=== PATIENT | female | born 1935 | race Caucasian/White ===

== ENCOUNTER 2019-04-05 16:30 | Inpatient (IN) | payer MEDICARE, OTHER ==
[~2019-04-05] VITALS: Ht 152.4 cm; Wt 61.7 kg
[2019-04-05] MEDS ORDERED: ELIQUIS5 MG PO (16:53)
[2019-04-05] MEDS ORDERED: LIPITOR10 MG PO (16:55)
[2019-04-05] MEDS ORDERED: BENEFIBER152 GM PO (16:57)
[2019-04-05] MEDS ORDERED: TUMS PO ×2 (16:58→16:59)
[2019-04-05] MEDS ORDERED: XALATAN2.5 ML OPHTHALMIC (17:02)
[2019-04-05] MEDS ORDERED: LEVOXYL75 MCG PO (17:05)
[2019-04-05] MEDS ORDERED: TOPROL XL100 MG PO (17:22)
[2019-04-05] MEDS ORDERED: MULTIVITAMINS PO (17:24)
[2019-04-05] MEDS ORDERED: OXYBUTYNIN 5 MG5 M2 PO (17:25)
[2019-04-05 17:30] VITALS: BP 145/82
[2019-04-05] MEDS ORDERED: RISPERDAL0.5 MG PO (17:35)
[2019-04-05] MEDS ORDERED: OMEGA-3 + VITA1 EACH PO (17:41)
--- NOTE | 2019-04-05 18:46 | NUR ---
83 YEAR OLD FEMALE PATIENT ADMITTED TO ROOM 328 WITH A DX OF ENCEPHALOPATHY. PT SETTLED INTO ROOM, EDUCATED ON USE OF THE CALL LIGHT AND FALL PRECAUTIONS. ADMISSION ORDERS RECEIVED. FALL PRECAUTIONS IMPLEMENTED.
[2019-04-05 20:10] VITALS: BP 125/74
--- NOTE | 2019-04-06 00:05 | NUR ---
PATIENT ARRIVED ON DAY SHIFT FROM [facility]. ALERT AND ORIENTED TO NAME AND TIME. HAS TO BE REORIENTED TO PLACE AND SITUATION. FORGETFUL. CONCERNED ABOUT NOT BEING ABLE TO KEEP UP WITH THE THERAPY. REASSURED PATIENT THAT ADJUSTMENTS COULD BE MADE IF NEEDED. DENIES PAIN. ASSISTED WITH ANSWERING QUESTIONS. REHAB ADMISSION TOOL COMPLETED. ORIENTED TO CALL LIGHT AND TO REHAB ROUTINE. CALL LIGHT WITHIN REACH. PROVIDED AN ENSURE SHAKE. STATES PATIENT HAS LOST 20 POUNDS IN THE LAST 4-6 WEEKS.
[2019-04-06 04:14] LABS: HEMATOCRIT 34.7 % (37.0-47.0); HEMOGLOBIN 11.6 gm/dL (12.0-15.0); MCH 29.6 pg (26.0-34.0); MCHC 33.3 g/dL (28.0-37.0); MCV 88.7 fL (80.0-100.0); MPV 7.7 fl. (7.2-11.1); RBC 3.91 mil/uL (4.20-5.00); RDW-CV 15.3 % (10.5-14.5); WBC 8.3 thou/uL (4.0-11.0)
[2019-04-06 04:18] LABS: CALCIUM 9.2 mg/dL (8.5-10.1); CREATININE 1.4 mg/dL (0.6-1.3); POTASSIUM 3.2 mmol/L (3.5-5.1)
--- NOTE | 2019-04-06 06:02 | NUR ---
RESTED ON/OFF UNTIL ABOUT 0300 THEN SLEPT BETTER. TRIED TO GET OUT OF BED X 2 BEFORE 0300. REORIENTED TO TIME. HOURLY ROUNDING IN PROGRESS.
[2019-04-06 07:41] VITALS: BP 199/98; BP 209/85
--- NOTE | 2019-04-06 10:08 | NUR ---
pt ia alert but has been aggitated this am with staff. pt ambulated into [place] with roller walker and gaitbetl on. ot was at pt side pt did not want to be touched and insisted on wherewas the way out of here. called and has come. security was called and pt did trustingly respond to him well.pt calm with at side. rehab plans discussed with pt and . pt now working with ot.
[2019-04-06 11:32] VITALS: BP 105/81
--- NOTE | 2019-04-06 11:52 | NUR ---
SW met with pt to complete initial assessment, introduce self, and SW role on inpt rehab. Pt returning to room from gym and continuing to work with PT during assessment. Pt lives at home with at [facility] at [place]. Pt admitted to [facility] inpt rehab from [facility]. Pt has rollator. Pt has hx of OP PT at [facility] and hx of spine issues. SW to continue to follow to assist with safe dc planning.
--- NOTE | 2019-04-06 13:36 | NUR ---
Nutrition: Consult for 20# wt loss. Per , pt lost 20# d/t having bronchitis, carpel tunnel repair, other healthcare that she lost wt while resting and healing. Current wt is 138#. +BM. No albumin recorded. H/o HTN, afib. RX noted. She didn't eat BKFST today, but ate most of lunch and drank an Ensure. RD will order Ensure one a day for her. Appears at mild risk. GOALS: wt to stabilize, good po intake.
--- NOTE | 2019-04-06 18:21 | NUR ---
PT HAS BEEN COOPERATIVE SINCE THIS AM AND PLESANT. PT DENIES PAIN AND HAS WORKED WITH THERAPIES. PT HAS STRESS INC AND CALLS FOR ASSIST TO BATHROOM,PT WEARS BREIF. PT AMBULATES WITH STEADY GAIT WITH WALKER AND GAITBELT ON AND MIN ASSIST OF 1. PT REMINDED TO DRINK PO FLUIDS.
[2019-04-06 20:00] VITALS: BP 139/81
[2019-04-07 04:17] LABS: CREATININE 1.3 mg/dL (0.6-1.3); MAGNESIUM 1.6 mg/dL (1.8-2.4); POTASSIUM 3.3 mmol/L (3.5-5.1)
--- NOTE | 2019-04-07 05:25 | NUR ---
ASSUMED PT CARE AT 1930. PT ALERT AND ORIENTED, POLITE AND COOPERATIVE WITH CARES. PT SITTING UP IN RECLINER VISITING WITH . PT UP WITH SBA, GAIT BELT AND WALKER TO BATHROOM TO VOID NUMEROUS TIMES. PT WEARS BRIEFS BUT HAD TO URINE ACCIDENTS. MEPILEX TO RIGHT ELBOW C/D/I AND OCCLUSIVE. BANDAGE TO LEFT ARM INTACT. VITAL SIGNS WITHIN NORMAL LIMITS. PT CONFUSED AT 0300 AFTER AWAKENED BY LAB, INSISTING SHE WAS GOING TO GET UP AND GET DRESSED. PT CONVINCED TO GO BACK TO BED AND TO SLEEP. CALL LIGHT AND FREQUENTLY USED ITEMS IN REACH. HOURLY ROUNDING IN PROGRESS, WILL CONTINUE TO MONITOR.
[2019-04-07 08:59] VITALS: BP 132/80
--- NOTE | 2019-04-07 18:17 | NUR ---
AM ASSESSMENT AND VITAL SIGNS COMPLETED DOCUMENTED. PT HAS BEEN FORGETFUL AND PLEASANTLY CONFUSED THROUGHOUT THIS SHIFT. POTASSIUM AND MAGNESIUM REPLACED PER ELECTROLYTE PROTOCOL. PT NEEDS PROMPTS/ CUES TO COMPLETE SIMPLE TASKS. STERI STRIPS REMAIN INTACT TO THE SKIN TEAR ON HER LEFT FOREARM, GAUZE REPLACED WITH OPSITE THIS SHIFT. PT HAS STRESS INCONTINENCE AND NEEDS HELP WITH CHANGING HER BRIEF. PO FLUID ENCOURAGED. FALL PRECAUTIONS AND HOURLY ROUNDING CONTINUE.
[2019-04-07 20:09] VITALS: BP 124/72
--- NOTE | 2019-04-08 06:25 | NUR ---
ASSUMED PT CARE AT 1930, PT ALERT AND ORIENTED, POLITE AND COOPERATIVE WITH CARES. PT INCONTINENT AT BEGINNING OF SHIFT. PT SLEPT WELL OVERNIGHT. MEPILEX TO RIGHT ELBOW C/D/I AND OCCLUSIVE. STERISTRIPS TO SKIN TEAR ON LEFT FOREARM INTACT COVERED WITH OPSITE. PT CONTINENT ALL NIGHT. COGENT AND CONVERSATIONAL THIS MORNING. CALL LIGHT IN REACH. HOURLY ROUNDING COMPLETE.
[2019-04-08 08:00] VITALS: BP 146/65
--- NOTE | 2019-04-08 14:26 | NUR ---
PATIENT TOLERATING THERAPIES TAKEN TYLENOL TWICE THIS SHIFT WITH RELIEF. UP TO CHAIR AND AMBULATING WELL.
[2019-04-08 19:51] VITALS: BP 126/69
[2019-04-09 04:42] LABS: HEMATOCRIT 35.4 % (37.0-47.0); MCH 29.9 pg (26.0-34.0); MCHC 33.9 g/dL (28.0-37.0); MCV 88.2 fL (80.0-100.0); MPV 7.4 fl. (7.2-11.1); RBC 4.01 mil/uL (4.20-5.00); RDW-CV 15.5 % (10.5-14.5); WBC 6.1 thou/uL (4.0-11.0)
[2019-04-09 04:51] LABS: CALCIUM 9.6 mg/dL (8.5-10.1); CREATININE 1.3 mg/dL (0.6-1.3); POTASSIUM 3.7 mmol/L (3.5-5.1)
--- NOTE | 2019-04-09 05:32 | NUR ---
ASSUMED PT CARE AT 1930, PT ALERT AND ORIENTED, POLITE AND COOPERATIVE WITH CARES. VISITING WITH FAMILY AT SHIFT CHANGE. PT UP TO BSC WITH MIN ASSIST, GAIT BELT AND WALKER. TYLENOL ONCE THIS SHIFT WITH GOOD RESULT. PT CONTINENT ALL NIGHT. MEPILEX TO RIGHT ELBOW C/D/I AND OCCLUSIVE. STERISTRIPS TO SKIN TEAR ON LEFT FOREARM INTACT COVERED WITH OPSITE. USES CALL LIGHT APPROPRIATELY. CALL LIGHT AND FREQUENTLY USED ITEMS IN REACH. BED ALARM ON FOR SAFETY. HOURLY ROUNDING IN PROGRESS.
[2019-04-09 08:13] VITALS: BP 132/68
--- NOTE | 2019-04-09 16:14 | NUR ---
PATIENT AROUSABLE THIS AM BUT DID NOT WANT TO GET OUT OF BED. PATIENT UP FOR THE MORNING AT 1030. PATIENT ASSISTED WITH DRESSING. PATIENT UP TO [facility] WITH ASSISTANCE MULTIPLE TIMES. UP WITH WALKER AND GAIT BELT. GOOD APPETITE. AT BEDSIDE THROUGHOUT THE SHIFT. NO COMPLAINTS OF PAIN. DRESSINGS TO RIGHT ELBOW AND LEFT FOREARM CHANGED, PHOTOS TAKEN PER PROTOCOL.
[2019-04-09 19:00] VITALS: BP 105/58
--- NOTE | 2019-04-10 05:22 | NUR ---
ASSUMED CARES AT 1920. ALERT AND ORIENTED BUT FORGETFUL AND CONFUSED AT TIMES. PLEASANT. MOD ASSIST WITH GAIT BELT AND WALKER. UP TO BATHROOM. DOES OWN CARES. WEARS PULLUPS. SLEPT FOR FEW HOURS BUT WANTED TO GET UP AT 0300 TO READ AND GET DRESSED. PT REDIRECTED. CALL LIGHT IN REACH AND BED ALARM ON.
[2019-04-10 08:19] VITALS: BP 135/72
--- NOTE | 2019-04-10 16:07 | NUR ---
PATIENT WORKED WITH THERAPY THIS SHIFT. UP WITH SBA; GAIT BELT AND WALKER. PATIENT UP TO BATHROOM WITHOUT DIFFICULTY. PRN TYLENOL GIVEN THIS AM FOR RIGHT LEG/HIP PAIN. DRESSINGS REMAIN IN PLACE TO RIGHT ELBOW AND LEFT FORARM.
[2019-04-10 20:23] VITALS: BP 123/72
--- NOTE | 2019-04-11 05:14 | NUR ---
ASSUMED PT CARE AT 1930. PT ALERT AND ORIENTED BUT FORGEFUL AND CONFUSED AT TIMES. POLITE AND COOPERATIVE WITH CARES. UP WITH SBA, GAIT BELT AND WALKER TO BATHROOM TO VOID. TYLENOL GIVEN WITH EVENING MEDS FOR RIGHT LEG/HIP PAIN. PT STARTED MELATONIN AT HS, SLEPT WELL OVERNIGHT. DRESSINGS IN PLACE TO RIGHT ELBOW AND LEFT FOREARM. CALL LIGHT IN REACH. BED ALARM ON FOR SAFETY. HOURLY ROUNDING IN PROGRESS, WILL CONTINUE TO MONITOR.
[2019-04-11 08:21] VITALS: BP 144/87
[2019-04-11 19:30] VITALS: BP 121/54
--- NOTE | 2019-04-12 05:39 | NUR ---
ASSUMED PT CARE AT 1930. PT ALERT AND ORITENTED BUT CAN BE FORGETFUL AND CONFUSED AT TIMES. POLITE AND COOPERATIVE WITH CARES. UP WITH SBA, GAIT BELT AND WALKER TO BATHROOM TO VOID. PT CONTINENT OVERNIGHT, WEARING HOME BRIEF. TYLENOL ONCE THIS SHIFT FOR RIGHT LET/HIP PAIN. MELATONIN AT HS, PT SLEPT WELL OVERNIGHT. DRESSINGS IN PLACE TO RIGHT ELBOW AND LEFT FOREARM. CALL LIGHT IN REACH. BED ALARM ON FOR SAFETY. HOURLY ROUNDING IN PROGRESS, WILL CONTINUE TO MONITOR.
[2019-04-12 07:55] VITALS: BP 168/70
--- NOTE | 2019-04-12 14:00 | NUR ---
Nutrition: No wt since admit. No intake records. On 04/09, nsg noted pt with good appetite. Nsg noted pt with some confusion. Rec obtain current wt and record po intake for more accurate assessment.
--- NOTE | 2019-04-12 16:36 | NUR ---
SW and Dr Ruiz met with pt to review team conference summary and plan for pt to dc home with on Wednesday. Team recommending FT with pt and to discuss increased safety measures and constant cueing for pt safety at home with all tasks at all times. SW to discuss this with pt as well. SW to continue to follow to assist with safe dc planning.
[2019-04-12 20:00] VITALS: BP 132/58
--- NOTE | 2019-04-13 03:06 | NUR ---
ASSUMED CARE @ -.SITS IN RECLINER W/ VISITING.ASSISTED TO BED BY LAST MODEL DEPARTMENT SUPERVISOR @ 2199.HOB UP.BED ALARM PUT ON @ 2199.WANTS LIGHT IN BATHROOM LIGHT ON ALL NIGHT.REFUSED ICE PACK @ 2199.SEE PAIN MANAGEMENT @ 2214.WEARS PULL UPS.ON HOURLY ROUNDS.LAST MODEL DEPARTMENT SUPERVISOR DOING ODD HOUR ROUNDS.
--- NOTE | 2019-04-13 05:35 | NUR ---
SLEPT LATE SINCE 2300 BUT SLEPT GOOD ALL NIGHT.BRP X2 W/ ASSIST.INC.URINE X1 @ 0215.PULL UPS CHANGED X1 @ 0215.TOOK ONLY ONE PACKAGE [employer]HOU CRACKERS W/ STRAWBERRY ENSURE HS SNACKS.
[2019-04-13 08:00] VITALS: BP 119/71
--- NOTE | 2019-04-13 16:08 | NUR ---
SW spoke with pt and pt in more detail about team's recommendations regarding safe dc planning. SW received message to call pt son, Dr Carrillo, who expressed concern for pt dc home with pt on Wednesday as is original proposed dc date. SW spoke with pt and pt about calling pt son; pt provided permission to speak with him. Pt here to complete family training with pt and therapists. SW discussed in length about pt functional status in therapies and the need for supervision, cues at all times due to pt cognition barriers. Pt son aware of the needs and explained that pt will need more support to care for pt than possibly pt realizes or would admit to needing. SW provided information about HH services at dc and private duty resources. Pt son plans to visit pt tomorrow and also meet with SW tomorrow at 10 am to continue to discuss safe dc planning. TEJ discussed with Dr Ruiz who also spoke with pt son; Dr Ruiz suggested possibly providing pt more days on inpt rehab if needed to secure safety of pt dc home with and other support. TEJ mentioned this to pt son and also the option of SNF if necessary, or at least the 30 day window for SNF if pt family realize pt may need more therapy and nursing care to continue to try to progress in therapies at a SNF level of care. SW to continue to follow.
[2019-04-13 20:22] VITALS: BP 146/82
--- NOTE | 2019-04-14 02:12 | NUR ---
ASSUMED CARE @ [id number].SITS IN RECLINER VISITING W/ & DAUGHTER WHO JUST ARRIVED FROM [place].CHAIR ALARM ALREADY ON @ 1944.HOB UP IN BED.BED ALARM PUT ON @ 2044.WANTS BATHROOM LIGHT ON ALL NIGHT.ON HOURLY ROUNDS.WATCH INSPECTOR FINAL MOVEMENT DOING ODD HOUR ROUNDS.
--- NOTE | 2019-04-14 05:19 | NUR ---
sleeping since 2200 & SLEPT GOOD ALL NIGHT.REFUSED HS SNACK.BRP W/ ASSIST 3. INC.URINE X1.PULL UPS CHANGED.
[2019-04-14 08:17] VITALS: BP 104/54
--- NOTE | 2019-04-14 14:11 | NUR ---
TEJ followed up with pt, pt , pt son and pt dtr in law about dc planning possible for tomorrow, Sunday 04/15. Dr Riuz completed orders for pt to dc home with and supervision assistance available at all times; home med list still to be completed. TEJ provided more referrals and resources for in home care as needed and discussed HH services, pt/family chose [facility] services. TEJ faxed initial referral and will fax final med list upon dc day when completed. Pt has needed DME at home and pt completed family training. [facility] ph [phone] fax [phone]
--- NOTE | 2019-04-14 19:28 | NUR ---
PATIENT RESTING UP IN CHAIR. PATIENT DENIES ANY PAIN. PATIEN TIS UP WITH MINIMAL ASSIST OF ONE WITH GAIT BELT AND WALKER. PATIENT HAS GOOD APPETITE. PATIENT DENIES ANY NEEDS AT THIS TIME. CALL LIGHT WITHIN REACH.
[2019-04-14 20:50] VITALS: BP 115/62
--- NOTE | 2019-04-14 20:50 | NUR ---
SITTING UP IN RECLINER VISITING WITH AND DAUGHTER AND SON. SEVERAL OTHER FAMILY MEMBERS PRESENT EARLIER. GIVEN TYLENOL BY DAY RN FOR COMPLAINT OF RIGHT THIGH PAIN WITH RELIEF. STATES PAIN AT A "1". ALSO HAS AN ICE PACK TO RIGHT THIGH PLACED BY DAY RN. TOOK MEDICATIONS WHOLE A FEW AT A TIME WITH WATER. CALL LIGHT WITHIN REACH.
--- NOTE | 2019-04-15 06:45 | NUR ---
RESTED QUIETLY. UP X ONE DURING THE NIGHT TO THE BATHROOM TO VOID. AMBULATES WITH CGA, GAITBELT, WALKER AND CUEING. HOURLY ROUNDING IN PROGRESS.
[2019-04-15 08:00] VITALS: BP 164/71
[2019-04-15] MEDS ORDERED: TYLENOL325 MG PO (10:49)
[2019-04-15 10:54] VITALS: BP 164/71
[2019-04-15 11:09] VITALS: BP 164/71
[2019-04-15] MEDS ORDERED: RISPERDAL0.5 MG PO (11:15)
--- NOTE | 2019-04-15 12:03 | NUR ---
PT HAS MET HER DISCHARGE GOALS. DISCHARGE INSTRUCTIONS PROVIDED TO PT AND HER FAMILY. PRESCRIPTION PROVIDED FOR NEW MED. PT AND BELONGINGS TRANSPORTED INTO EXIT, ASSISTED INTO PRIVATE VEHICLE, DISCHARGED HOME IN STABLE CONDITION.
== END 2019-04-15 12:13 | disposition home health service (06) | DRG 92 ==
LOC: M.REH 16:30
PROVIDERS: Family Medicine; ADMIT Physical Medicine & Rehabilitation
DX: G92 Toxic encephalopathy (principal); N17.9 Acute kidney failure, unspecified; I48.91 Unspecified atrial fibrillation; E03.9 Hypothyroidism, unspecified; Z96.1 Presence of intraocular lens; G25.81 Restless legs syndrome; E78.2 Mixed hyperlipidemia; M47.892 Other spondylosis, cervical region; I10 Essential (primary) hypertension; M47.896 Other spondylosis, lumbar region; G47.00 Insomnia, unspecified; M54.31 Sciatica, right side; M54.16 Radiculopathy, lumbar region; Z88.8 Allergy status to other drugs, medicaments and biological substances; Z98.42 Cataract extraction status, left eye; Z98.41 Cataract extraction status, right eye; Z90.710 Acquired absence of both cervix and uterus; Z91.81 History of falling

== ENCOUNTER → 2021-06-20 | Outpatient (CLI) | payer MEDICARE, OTHER ==
[~2021-06-20] MED LIST: BENEFIBER152 GM PO; ELIQUIS5 MG PO; LEVOXYL75 MCG PO; LIPITOR10 MG PO; MULTIVITAMINS PO; OMEGA-3 + VITA1 EACH PO; OXYBUTYNIN 5 MG5 M2 PO; RISPERDAL0.5 MG PO; TOPROL XL100 MG PO; TUMS PO; TYLENOL325 MG PO; XALATAN2.5 ML OPHTHALMIC
== END ==
LOC: M.WC 09:00
PROVIDERS: ATTEND Family Medicine
DX: S81.802A Unspecified open wound, left lower leg, initial encounter (principal); I87.312 Chronic venous hypertension (idiopathic) with ulcer of left lower extremity; L97.822 Non-pressure chronic ulcer of other part of left lower leg with fat layer exposed; I25.10 Atherosclerotic heart disease of native coronary artery without angina pectoris; H26.9 Unspecified cataract; G62.9 Polyneuropathy, unspecified; I89.0 Lymphedema, not elsewhere classified; H40.9 Unspecified glaucoma; Z86.73 Personal history of transient ischemic attack (TIA), and cerebral infarction without residual deficits; Z79.01 Long term (current) use of anticoagulants; Z79.899 Other long term (current) drug therapy; Z90.710 Acquired absence of both cervix and uterus; Z95.0 Presence of cardiac pacemaker; X58.XXXA Exposure to other specified factors, initial encounter; Y93.89 Activity, other specified; Y92.89 Other specified places as the place of occurrence of the external cause; Y99.8 Other external cause status

== ENCOUNTER → 2021-06-27 | Outpatient (CLI) | payer MEDICARE, OTHER | LOC: M.WC 08:28 | PROVIDERS: ATTEND Family Medicine | DX: S81.802D Unspecified open wound, left lower leg, subsequent encounter (principal); I87.312 Chronic venous hypertension (idiopathic) with ulcer of left lower extremity; L97.822 Non-pressure chronic ulcer of other part of left lower leg with fat layer exposed; I25.10 Atherosclerotic heart disease of native coronary artery without angina pectoris; H26.9 Unspecified cataract; G62.9 Polyneuropathy, unspecified; I89.0 Lymphedema, not elsewhere classified; H40.9 Unspecified glaucoma; Z86.73 Personal history of transient ischemic attack (TIA), and cerebral infarction without residual deficits; Z79.01 Long term (current) use of anticoagulants; Z79.899 Other long term (current) drug therapy; W22.8XXD Striking against or struck by other objects, subsequent encounter ==

== ENCOUNTER → 2021-07-03 | Outpatient (CLI) | payer MEDICARE, OTHER | LOC: M.WC 08:26 | PROVIDERS: ATTEND Family Medicine | DX: S81.802D Unspecified open wound, left lower leg, subsequent encounter (principal); I87.312 Chronic venous hypertension (idiopathic) with ulcer of left lower extremity; L97.822 Non-pressure chronic ulcer of other part of left lower leg with fat layer exposed; I25.10 Atherosclerotic heart disease of native coronary artery without angina pectoris; G62.9 Polyneuropathy, unspecified; H26.9 Unspecified cataract; I89.0 Lymphedema, not elsewhere classified; H40.9 Unspecified glaucoma; Z86.73 Personal history of transient ischemic attack (TIA), and cerebral infarction without residual deficits; Z79.01 Long term (current) use of anticoagulants; Z79.899 Other long term (current) drug therapy; W22.8XXD Striking against or struck by other objects, subsequent encounter ==

== ENCOUNTER → 2021-07-10 | Outpatient (CLI) | payer MEDICARE, OTHER | LOC: M.WC 08:41 | PROVIDERS: ATTEND Family Medicine | DX: S81.802D Unspecified open wound, left lower leg, subsequent encounter (principal); I87.312 Chronic venous hypertension (idiopathic) with ulcer of left lower extremity; L97.822 Non-pressure chronic ulcer of other part of left lower leg with fat layer exposed; I25.10 Atherosclerotic heart disease of native coronary artery without angina pectoris; G62.9 Polyneuropathy, unspecified; H26.9 Unspecified cataract; I89.0 Lymphedema, not elsewhere classified; H40.9 Unspecified glaucoma; Z86.73 Personal history of transient ischemic attack (TIA), and cerebral infarction without residual deficits; Z79.01 Long term (current) use of anticoagulants; W22.8XXD Striking against or struck by other objects, subsequent encounter ==

== ENCOUNTER → 2021-07-18 | Outpatient (CLI) | payer MEDICARE, OTHER | LOC: M.WC 09:57 | PROVIDERS: ATTEND Family Medicine | DX: S81.802D Unspecified open wound, left lower leg, subsequent encounter (principal); I87.312 Chronic venous hypertension (idiopathic) with ulcer of left lower extremity; L97.822 Non-pressure chronic ulcer of other part of left lower leg with fat layer exposed; I89.0 Lymphedema, not elsewhere classified; I25.10 Atherosclerotic heart disease of native coronary artery without angina pectoris; H26.9 Unspecified cataract; H40.9 Unspecified glaucoma; Z86.73 Personal history of transient ischemic attack (TIA), and cerebral infarction without residual deficits; Z79.01 Long term (current) use of anticoagulants; Z79.899 Other long term (current) drug therapy; X58.XXXD Exposure to other specified factors, subsequent encounter ==

== ENCOUNTER → 2021-07-24 | Outpatient (CLI) | payer MEDICARE, OTHER | LOC: M.WC 09:52 | PROVIDERS: ATTEND Family Medicine | DX: S81.802D Unspecified open wound, left lower leg, subsequent encounter (principal); I87.312 Chronic venous hypertension (idiopathic) with ulcer of left lower extremity; L97.822 Non-pressure chronic ulcer of other part of left lower leg with fat layer exposed; I89.0 Lymphedema, not elsewhere classified; I25.10 Atherosclerotic heart disease of native coronary artery without angina pectoris; H26.9 Unspecified cataract; H40.9 Unspecified glaucoma; Z86.73 Personal history of transient ischemic attack (TIA), and cerebral infarction without residual deficits; Z79.01 Long term (current) use of anticoagulants; X58.XXXD Exposure to other specified factors, subsequent encounter ==

== ENCOUNTER → 2021-08-01 | Outpatient (CLI) | payer MEDICARE, OTHER | LOC: M.WC 08:29 | PROVIDERS: ATTEND Family Medicine | DX: S81.802D Unspecified open wound, left lower leg, subsequent encounter (principal); I87.312 Chronic venous hypertension (idiopathic) with ulcer of left lower extremity; L97.821 Non-pressure chronic ulcer of other part of left lower leg limited to breakdown of skin; G62.9 Polyneuropathy, unspecified; I25.10 Atherosclerotic heart disease of native coronary artery without angina pectoris; H26.9 Unspecified cataract; I89.0 Lymphedema, not elsewhere classified; H40.9 Unspecified glaucoma; Z86.73 Personal history of transient ischemic attack (TIA), and cerebral infarction without residual deficits; Z79.01 Long term (current) use of anticoagulants; Z79.899 Other long term (current) drug therapy; W22.8XXD Striking against or struck by other objects, subsequent encounter ==